=== PATIENT | male | born 1950 | race Caucasian/White ===

== ENCOUNTER 2017-01-26 18:33 | Emergency (ER) | payer MEDICARE, MEDICAID ==
[2017-01-26 19:08] LABS: HEMATOCRIT 50.2 % (37.9-51.0); HEMOGLOBIN 17.4 g/dL (13.5-17.0); MEAN CORPUSCULAR HEMOGLOBIN 30.7 pg (27.0-33.4); MEAN CORPUSCULAR HGB CONC 34.7 g/dL (32.0-36.0); MEAN CORPUSCULAR VOLUME 89 fl (80-97); RED BLOOD COUNT 5.67 10^6/uL (4.35-5.55); RED CELL DISTRIBUTION WIDTH 12.5 % (11.5-14.0); WHITE BLOOD COUNT 11.2 10^3/uL (4.0-10.5)
--- NOTE | 2017-01-26 19:11 | ER Document Report ---
ED Respiratory Problem - General Chief Complaint: Respiratory Distress Stated Complaint: DIFFICULTY BREATHING Time Seen by Provider: 01/26/17 19:05 Notes: Patient is a 66-year-old male comes emergency department for chief complaint of difficulty breathing. He states he has had more difficulty breathing over the past few weeks, about 4 hours ago he felt like he could not get any air. 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 He denies fever or chills, he states he always has a cough but is not significantly changed from prior. TRAVEL OUTSIDE OF THE [place] IN LAST 30 DAYS: No - Related Data Allergies/Adverse Reactions: procaine HCl [From Novocain] Adverse Reaction (Verified 01/26/17 23:16) Past Medical History - General Information source: Patient - Social History Smoking Status: Former Smoker Frequency of alcohol use: None Drug Abuse: None Lives with: Family Family History: Reviewed & Not Pertinent Patient has suicidal ideation: No Patient has homicidal ideation: No - Past Medical History Cardiac Medical History: Denies: Hx Coronary Artery Disease, Hx Heart Attack, Hx Hypertension Pulmonary Medical History: Reports: Hx Pneumonia Denies: Hx Asthma, Hx Bronchitis, Hx COPD Neurological Medical History: Reports: Hx Seizures - CHILDHOOD. Denies: Hx Cerebrovascular Accident Renal/ Medical History: Denies: Hx Peritoneal Dialysis Malignancy Medical History: Reports Other - Subglottal mass GI Medical History: Denies: Hx Hepatitis, Hx Hiatal Hernia, Hx Ulcer Musculoskeltal Medical History: Denies Hx Arthritis Infectious Medical History: Denies: Hx Hepatitis Past Surgical History: Denies: Hx Open Heart Surgery, Hx Pacemaker - Immunizations Hx Diphtheria, Pertussis, Tetanus Vaccination: Yes Review of Systems - Review of Systems Constitutional: No symptoms reported EENT: See HPI Cardiovascular: No symptoms reported Respiratory: See HPI Gastrointestinal: No symptoms reported Genitourinary: No symptoms reported Male Genitourinary: No symptoms reported Musculoskeletal: No symptoms reported Skin: No symptoms reported Hematologic/Lymphatic: No symptoms reported Neurological/Psychological: No symptoms reported Physical Exam - Vital signs Vitals: Temp Resp Pulse Ox 98.1 F 20 98 01/26/17 18:35 01/26/17 18:35 01/26/17 18:35 - General General appearance: Anxious In distress: Severe - HEENT Head: Normocephalic, Atraumatic Eyes: Normal Conjunctiva: Normal Eyelashes: Normal Pupils: PERRL Nasal: Normal Mouth/Lips: Normal Mucous membranes: Normal Pharynx: Normal Neck: Normal - Respiratory Respiratory status: Respiratory distress, Labored, Retractions, Tachypnea Breath sounds: Decreased air movement. No: Rales, Rhonchi, Stridor, Wheezing - Cardiovascular Rhythm: Regular, Tachycardia Heart sounds: Normal auscultation, S1 appreciated, S2 appreciated - Abdominal Inspection: Normal Tenderness: Nontender. No: Tender, Guarding - Back Back: Normal, Nontender - Extremities General upper extremity: Normal inspection, Nontender, Normal strength, Normal temperature General lower extremity: Normal inspection, Nontender, Normal strength, Normal temperature. 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 He does have decreased breath sounds bilaterally. No drooling or stridor. No hypoxia. Concern is upper airway obstruction with his history of subglottal mass. Chest x-ray unremarkable. Discussed with Dr. Shahid, he did evaluate patient at bedside, patient is getting racemic epinephrine, given 10 mg IV dexamethasone , placed on BiPAP. 01/26/17 19:55 Patient significantly improved, respirations decreased, retractions decreased, I hear better air movement on auscultation, will continue to monitor. Patient continued to improve. Discussed with Dr. Shahid. Because patient has improved recommendation is for transfer to tertiary care center, discussed with patient and family, they state they were getting a follow-up appointment at [facility] , this is their preference. Spoke with transfer center, they state that Dr. Baldo Ley request transfer to the ED because of the critical nature of the patient's presentation. Spoke with Dr. Arreola in the emergency department, he has accepted patient for transfer. 01/26/17 21:25 Difficult to obtain ground transport to take patient, patient will go by helicopter. Family and patient in full agreement with this. Patient still doing very well on BiPAP. No significant change in status. 01/26/17 21:55 Helicopter team is here, patient reevaluated again at bedside, patient with no change from prior or additional complaints. Stable for transport. - Vital Signs Vital signs: Temp Pulse Resp BP Pulse Ox 97.5 F 19 150/98 H 99 01/26/17 22:00 01/26/17 22:01 01/26/17 22:01 01/26/17 22:01 - Laboratory Result Diagrams: 01/26/17 18:44 01/26/17 18:44 Laboratory results interpreted by me: 01/26/17 01/26/17 18:44 18:44 WBC 11.2 H RBC 5.67 H Hgb 17.4 H Seg Neuts % (Manual) 87 H Lymphocytes % (Manual) 7 L Abs Neuts (Manual) 9.7 H Sodium 134.0 L Chloride 92 L Carbon Dioxide 31 H Glucose 165 H Direct Bilirubin 0.6 H Critical Care Note - Critical Care Note Total time excluding time spent on procedures (mins): 45 - Respiratory distress , subglottal mass Comments: Please allow 40 minutes of critical care time for management of patient with subglottal mass causing upper airway obstruction and respiratory distress. Treatment with racemic epinephrine, dexamethasone, BiPAP, multiple re- evaluations, discussion with family, consultation and transfer to tertiary care. Discharge - Discharge Clinical Impression: Throat mass, Respiratory distress Condition: Serious Disposition: [facility]
[2017-01-26 19:25] LABS: ALANINE AMINOTRANSFERASE 22 U/L (21-72); ALBUMIN 4.3 g/dL (3.5-5.0); ALKALINE PHOSPHATASE 111 U/L (38-126); ANION GAP 11 (5-19); ASPARTATE AMINO TRANSFERASE 27 U/L (17-59); BILIRUBIN,DIRECT 0.6 mg/dL (0.0-0.4); BILIRUBIN,TOTAL 1.3 mg/dL (0.2-1.3); BLOOD UREA NITROGEN 8 mg/dL (7-20); CALCIUM 9.5 mg/dL (8.4-10.2); CARBON DIOXIDE 31 mmol/L (22-30); CHLORIDE 92 mmol/L (98-107); CREATINE KINASE 84 U/L (55-170); CREATININE RESULT 0.73 mg/dL (0.52-1.25); GLUCOSE 165 mg/dL (75-110); POTASSIUM 3.6 mmol/L (3.6-5.0); TOTAL PROTEIN 7.2 g/dL (6.3-8.2)
[2017-01-26 19:26] LABS: VENOUS BLOOD BASE EXCESS 2.7 mmol/L; VENOUS BLOOD HCO3 29.8 mmol/L (20-32); VENOUS BLOOD PCO2 55.6 mmHg (35-63); VENOUS BLOOD PH 7.35 (7.30-7.42)
--- NOTE | 2017-01-26 19:32 | RADIOLOGY REPORT (SQ) ---
EXAM DESCRIPTION: CHEST SINGLE VIEW COMPLETED DATE/TIME: 01/26/2017 7:16 pm REASON FOR STUDY: SOB COMPARISON: None. EXAM PARAMETERS: NUMBER OF VIEWS: One view. TECHNIQUE: Single frontal radiographic view of the chest acquired. RADIATION DOSE: NA LIMITATIONS: None. FINDINGS: LUNGS AND PLEURA: No opacities, masses or pneumothorax. No pleural effusion. MEDIASTINUM AND HILAR STRUCTURES: No masses. Contour normal. HEART AND VASCULAR STRUCTURES: Heart normal in size. Normal vasculature. BONES: No acute findings. HARDWARE: None in the chest. OTHER: No other significant finding. IMPRESSION: NO ACUTE RADIOGRAPHIC FINDING IN THE CHEST. TECHNICAL DOCUMENTATION: JOB ID: [id number] [employer]- All Rights Reserved
[2017-01-26 19:35] LABS: BASOPHILS % (MANUAL) 1 % (0-2); EOSINOPHILS % (MANUAL) 0 % (0-6); LYMPHOCYTES % (MANUAL) 7 % (13-45); TOTAL CELLS COUNTED 100
[2017-01-26 19:36] LABS: CREATINE KINASE MB 3.57 ng/mL (<4.55); TROPONIN I 0.023 ng/mL
[2017-01-26 19:38] LABS: SCHISTOCYTES SLIGHT
[2017-01-26] MEDS ORDERED: RACEPINEPHRINE HCL 2.25% NEB 0.5 ML AMPUL NEB ONE ×2 (19:42→22:05)
[2017-01-26] MEDS ORDERED: DEXAMETHASONE SOD PHOS INJ 10 MG/1 ML VIAL IV ONE (19:42)
--- NOTE | 2017-01-26 19:49 | RADIOLOGY REPORT (SQ) ---
EXAM DESCRIPTION: SOFT TISSUE NECK COMPLETED DATE/TIME: 01/26/2017 7:35 pm REASON FOR STUDY: ?obstruction COMPARISON: None. NUMBER OF VIEWS: Two views. TECHNIQUE: AP and lateral radiographic image of the soft tissues of the neck. LIMITATIONS: None. FINDINGS: EPIGLOTTIS: Normal. Contour normal. Aryepiglottic folds normal. PREVERTEBRAL SOFT TISSUES: Normal. No soft tissue swelling. SUBGLOTTIC AREA: Normal. No narrowing. RETROPHARYNGEAL SPACE: Normal. No soft tissue masses. BONES: No significant findings. LUNG APICES: Normal. OTHER: No radiopaque foreign body. No other significant finding. IMPRESSION: NEGATIVE STUDY OF THE SOFT TISSUES OF THE NECK. TECHNICAL DOCUMENTATION: JOB ID: [id number] [employer]- All Rights Reserved
--- NOTE | 2017-01-26 19:49 | EKG REPORT ---
SEVERITY:- ABNORMAL ECG - SINUS TACHYCARDIA PROBABLE LEFT ATRIAL ABNORMALITY LAD, CONSIDER LAFB OR INFERIOR INFARCT CONSIDER RIGHT VENTRICULAR HYPERTROPHY : Confirmed by: Deni Carlton MD 26-Jan-2017 19:48:15
[2017-01-26 20:10] LABS: VENOUS BLOOD BASE EXCESS 2.4 mmol/L; VENOUS BLOOD HCO3 30.2 mmol/L (20-32); VENOUS BLOOD PCO2 57.2 mmHg (35-63); VENOUS BLOOD PH 7.34 (7.30-7.42)
[2017-01-26] MEDS ORDERED: NORMAL SALINE 1000 ML 1,000 ML IV ONE (20:40)
[2017-01-26 22:13] VITALS: BP 150/98
== END 2017-01-26 22:32 | disposition short-term general hospital (02) ==
LOC: ER 18:33
DX: R22.1 Localized swelling, mass and lump, neck (principal); R06.03 Acute respiratory distress
CPT/HCPCS: 93005; 94640 ×2; 99291; 96361; 96374; 36415; 82553; 82550; 85025; 80053; 84484; 82803; 71010; 70360; 93010; 94660; J7030; J1100; J3490

== ENCOUNTER 2019-04-10 15:45 | Emergency (ER) | payer MEDICARE, MEDICAID ==
[2019-04-10 15:53] VITALS: BP 147/71
--- NOTE | 2019-04-10 16:16 | ER Document Report ---
HPI - HPI Time Seen by Provider: 04/10/19 15:56 Context: Patient is a 68-year-old male who presents to the emergency department after coughing out his stoma stent. He states that this happened yesterday. He states that he coughed so hard that he was unable to find out where the device went. Patient has had his tracheostomy for the past 3 years. Patient has a special type of device where he has an artificial voice box. Patient states that he just wants to talk. Denies any shortness of breath or difficulty breathing. Denies any fever, body aches, or chills. - ROS Systems Reviewed and Negative: Yes All other systems reviewed and negative - CONSTITUTIONAL Constitutional: DENIES: Fever, Chills - NEURO Neurology: DENIES: Weakness - CARDIOVASCULAR Cardiovascular: DENIES: Chest pain - RESPIRATORY Respiratory: REPORTS: Coughing. DENIES: Trouble Breathing - DERM Skin Color: Normal Skin Problems: None Past Medical History - General Information source: Patient, Relative - Social History Smoking Status: Unknown if Ever Smoked Family History: Reviewed & Not Pertinent - Past Medical History Cardiac Medical History: Denies: Hx Coronary Artery Disease, Hx Heart Attack, Hx Hypertension Pulmonary Medical History: Reports: Hx Pneumonia Denies: Hx Asthma, Hx Bronchitis, Hx COPD Neurological Medical History: Reports: Hx Seizures - CHILDHOOD. Denies: Hx Cerebrovascular Accident Renal/ Medical History: Denies: Hx Peritoneal Dialysis GI Medical History: Denies: Hx Hepatitis, Hx Hiatal Hernia, Hx Ulcer Musculoskeletal Medical History: Denies Hx Arthritis Infectious Medical History: Denies: Hx Hepatitis Past Surgical History: Denies: Hx Open Heart Surgery, Hx Pacemaker - Immunizations Hx Diphtheria, Pertussis, Tetanus Vaccination: Yes Vertical Provider Document - CONSTITUTIONAL Agree With Documented VS: Yes Exam Limitations: No Limitations General Appearance: No Apparent Distress - INFECTION CONTROL TRAVEL OUTSIDE OF THE [place] IN LAST 30 DAYS: No - HEENT HEENT: Atraumatic, Normocephalic, PERRLA - NECK Neck: Other - Stoma site patent. - RESPIRATORY Respiratory: Breath Sounds Normal, No Respiratory Distress - CARDIOVASCULAR Cardiovascular: Regular Rate, Regular Rhythm Pulses: Normal: Radial - GI/ABDOMEN Gastrointestinal: Abdomen Soft, Abdomen Non-Tender - MUSCULOSKELETAL/EXTREMETIES Musculoskeletal/Extremeties: FROM - NEURO Level of Consciousness: Awake, Alert, Appropriate Motor/Sensory: No Motor Deficit, No Sensory Deficit - DERM Integumentary: Warm, Dry, No Rash Course - Re-evaluation Re-evalutation: 04/10/19 16:16 Stoma site is patent. No respiratory distress noted. Norma, respiratory therapist evaluated the patient and stated that the needs, we do not have here in the hospital. I spoke with Janet RN, nursing sign shop supervisor and she states that we do not have that device. I advised the patient to follow up with his speech therapy or not just. He agreement with this plan. Follow-up precautions were given. Verbal discharge instructions were given to the patient. They verbalized understanding. They are stable for discharge. - Vital Signs Vital signs: Temp Pulse Resp BP Pulse Ox 98.1 F 99 18 147/71 H 93 04/10/19 15:52 04/10/19 15:52 04/10/19 15:52 04/10/19 15:52 04/10/19 15:52 Discharge - Discharge Clinical Impression: Tracheostomy in place Condition: Stable Disposition: HOME, SELF-CARE Additional Instructions: You were seen today in the emergency department for coughing out your device to help you talk. We do not have that piece of equipment here in the hospital. Please follow-up with your doctor or speech therapist who placed it in tomorrow. Referrals: LOCAL,NO [NO LOCAL MD] - Follow up as needed
== END 2019-04-10 16:23 | disposition home or self-care (01) ==
LOC: ER 15:45
DX: J95.00 Unspecified tracheostomy complication (principal); R05 Cough
CPT/HCPCS: 99283